=== PATIENT | male | born 2000 | race Caucasian/White ===

== ENCOUNTER 2024-07-15 15:29 | Emergency (ER) | payer BC ==
[2024-07-15] MEDS ORDERED: Sodium Chloride 0.9% 10 ML Syringe FLUSH PRN (15:37)
[2024-07-15] MEDS: fentaNYL 100 MCG/2 ML SDV IVPUSH ONE (15:48)
[2024-07-15 15:50] LABS: BASOPHILS ABSOLUTE AUTO 0.11 10^3/uL (0.00-0.10); BASOPHILS PERCENT AUTO 1.1 % (0.0-1.0); EOSINOPHILS ABSOLUTE AUTO 0.78 10^3/uL (0.10-0.30); EOSINOPHILS PERCENT AUTO 7.9 % (1.0-3.0); HEMOGLOBIN 16.9 g/dL (13.0-17.0); IMMATURE GRAN ABSOLUTE AUTO 0.02 10^3/uL (0.00-0.04); IMMATURE GRAN PERCENT AUTO 0.2 % (0.0-0.4); LYMPHOCYTES ABSOLUTE AUTO 4.06 10^3/uL (1.00-4.00); LYMPHOCYTES PERCENT AUTO 40.9 % (20.0-40.0); MEAN CORPUSCULAR HEMOGLOBIN 29.9 pg (27.0-31.0); MEAN CORPUSCULAR HGB CONC 35.2 g/dL (32.0-36.0); MEAN CORPUSCULAR VOLUME 84.8 fL (82.0-92.0); MEAN PLATELET VOLUME 11.1 fL (7.4-10.4); MONOCYTES ABSOLUTE AUTO 0.82 10^3/uL (0.10-0.80); MONOCYTES PERCENT AUTO 8.3 % (2.0-8.0); NEUTROPHILS ABSOLUTE AUTO 4.13 10^3/uL (2.50-7.00); NEUTROPHILS PERCENT AUTO 41.6 % (50.0-70.0); PLATELET COUNT,PLT 319 10^3/uL (150-400); RED BLOOD CELL COUNT 5.66 10^6/uL (4.50-6.00); RED CELL DISTRIBUTION WIDTH 11.6 % (11.5-14.5); WHITE BLOOD CELL COUNT,WBC 9.92 10^3/uL (5.00-10.00)
[2024-07-15 16:07] LABS: B-TYPE NATRIURETIC PEPTIDE,BNP < 5 pg/mL (0-100)
[2024-07-15 16:16] LABS: ALANINE AMINOTRANSFERASE,ALT 37 U/L (14-63); ALBUMIN 4.74 g/dL (3.40-5.00); ALKALINE PHOSPHATASE 85 U/L (46-116); ANION GAP 14.3 mmol/L (5-15); ASPARTATE AMNIOTRANSFERASE,AST 21 U/L (15-37); BILIRUBIN TOTAL 0.4 mg/dL (0.2-1.0); BLOOD UREA NITROGEN,BUN 19 mg/dL (7-18); C-REACTIVE PROTEIN < 0.50 mg/dL (0.00-0.50); CALCIUM 9.9 mg/dL (8.7-10.3); CARBON DIOXIDE,CO2 27.5 mmol/L (21.0-32.0); CHLORIDE,CL 101 mmol/L (98-107); CREATININE 0.94 mg/dL (0.51-1.17); EST CRCL DRUG DOSING (CG) 135.76 mL/min; ESTIMATED GFR 115 mL/min (>=60); GLUCOSE RANDOM 94 mg/dL (70-140); POTASSIUM,K 3.8 mmol/L (3.5-5.1); PROTEIN TOTAL,TP 8.5 g/dL (6.4-8.2); SODIUM,NA 139 mmol/L (136-145)
[2024-07-15] MEDS: Iopamidol 755 Mg/ML 100 ML Bottle IV ONE (16:27)
[2024-07-15] MEDS: Sodium Chloride 0.9% 50 ML IV SCH (16:27)
[2024-07-15] MEDS: Ketorolac 30 MG/ML SDV IVPUSH ONE (16:41)
[2024-07-15] MEDS: Sodium Chloride 0.9% 1,000 ML IV ONE (16:56)
[2024-07-15 18:09] LABS: APPEARANCE,URINE CLEAR (CLEAR); BILIRUBIN,URINE NEGATIVE (NEGATIVE); COLOR,URINE YELLOW (YELLOW); EPITHELIAL CELLS,URINE OCCASIONAL /LPF; GLUCOSE,URINE NEGATIVE (NEGATIVE); KETONES,URINE NEGATIVE (NEGATIVE); LEUKOCYTE ESTERASE,URINE NEGATIVE (NEGATIVE); NITRITE,URINE NEGATIVE (NEGATIVE); OCCULT BLOOD,URINE NEGATIVE (NEGATIVE); PH,URINE 5.5 (5.0-9.0); PROTEIN,URINE NEGATIVE (NEGATIVE); RBC,URINE 0-5 /HPF (0-5); UROBILINOGEN,URINE 0.2 E.U./dL (0.2-1.0); WBC,URINE 0-5 /HPF (0-5)
[2024-07-15 18:10] LABS: BACTERIA,URINE OCCASIONAL /HPF (NONE TO FEW)
[2024-07-15] MEDS: Acetaminophen/HYDROcodone 325-5 MG Tab PO ONE (18:20)
[2024-07-15] MEDS: Cyclobenzaprine 5 MG Tab PO SCH (18:20)
== END 2024-07-15 18:30 | disposition home or self-care (01) ==
LOC: SUPCPDRO 15:29 → KA.ED 15:29
DX: M62.830 Muscle spasm of back (principal); Z79.899 Other long term (current) drug therapy
CPT/HCPCS: 71275; 74174; 80053; 81001; 83880; 84484; 85025; 86140; 93005; 96361; 96365; 96375; 99284-25; A9270-GY; J1885; J2800; J3010; J7030; Q9967